=== PATIENT | female | born 1960 | race African-American/Black ===

== ENCOUNTER 2017-03-16 14:28 | Inpatient (IN) | payer OTHER ==
[~2017-03-16] VITALS: Ht 165.1 cm; Wt 88.5 kg
--- NOTE | ~2017-03-16 | EKG ---
[place] [address] [facility] [facility] [place] [address] ELECTROCARDIOGRAM REPORT Name: JERROD JENNINGS Room #: [facility]ITAL[facility] [id number] Admission: 03/16/17 Attend Phys: Discharge: Date of : 62 Report #: [id number] THIS REPORT FOR: //name// [facility] ED Test Date: 2017-03-16 Test Time: 15:03:08 Pat Name: JERROD JENNINGS Department: Room: Gender: F [employer]essel Crew Member: [facility] : 1960 Requested By: Noemy Blue Order Number: [id number] MD: Dakota Rojas Measurements Intervals [place] Rate: 125 P: 36 PA: 137 QRS: -26 QRSD: 78 T: 116 QT: 282 QTc: 407 Interpretive Statements Sinus tachycardia LVH with secondary repolarization abnormality Compared to ECG 05/05/2016 22:48:03 Early repolarization now present Sinus rhythm no longer present Possible ischemia no longer present Electronically Signed On 03-16-2017 16:07:05 [employer]OTHING MANAGER by Dakota Rojas [email or web address] <ELECTRONICALLY SIGNED> By: Dakota Rojas MD 03/16/17 1607 1503 1503 Dakota Rojas MD /LITO
[~2017-03-16 14:28] MED LIST: ASPIR 8181 MG PO; CARVEDILOL12.5 MG PO; FUROSEMIDE 20 M20 MG PO; GLUCOPHAGE XR750 MG PO; JANUVIA100 MG PO; LEVSIN0.125 MG PO; POTASSIUM20 PO; PRILOSEC 20 MG20 MG PO; PRINIVIL20 MG PO; ZOCOR20 MG PO
[2017-03-16 14:30] VITALS: BP 124/89
[2017-03-16 15:30] LABS: URINE BILIRUBIN NEGATIVE (Negative); URINE BLOOD TRACE (Negative); URINE CLARITY CLEAR; URINE COLOR YELLOW; URINE GLUCOSE-RANDOM* NEGATIVE (Negative); URINE KETONES NEGATIVE (Negative); URINE LEUKOCYTES NEGATIVE (Negative); URINE NITRITE NEGATIVE (Negative); URINE PROTEIN (DIPSTICK) 1+ (Negative); URINE UROBILINOGEN 0.2 E.U./dl (0.2-1.0)
[2017-03-16 15:38] LABS: SQUAMOUS 0-3 Few /LPF (0-3); URINE RBC 0-2 Rare /HPF (0-2); URINE WBC 6-15 Few /HPF (0-5)
[2017-03-16 15:39] LABS: CASTS None Seen /LPF (None Seen); CRYSTALS None Seen /LPF (None Seen)
[2017-03-16 15:57] LABS: MAGNESIUM 1.8 mg/dL (1.8-2.4); TROPONIN-I < 0.04 ng/mL (<0.06)
[2017-03-16 16:33] LABS: HEMATOCRIT 35.1 % (37.0-47.0); HEMOGLOBIN 11.4 gm/dL (12.0-15.0); MCH 25.4 pg (26.0-34.0); MCHC 32.5 g/dL (28.0-37.0); MCV 78.3 fL (80.0-100.0); PLATELET COUNT 267 thou/uL (150-400); RBC 4.48 mil/uL (4.20-5.00); RDW 14.5 % (10.5-14.5); WBC 11.9 thou/uL (4.0-11.0)
[2017-03-16 16:37] LABS: CALCIUM 9.3 mg/dL (8.5-10.1); POTASSIUM 4.4 mmol/L (3.5-5.1)
[2017-03-16 16:43] LABS: ALBUMIN 3.6 g/dL (3.4-5.0); TOTAL BILIRUBIN 0.5 mg/dL (<0.1-1.0)
[2017-03-16 16:58] LABS: OVALOCYTES OCCASIONAL
[2017-03-16 18:10] VITALS: BP 124/89
[2017-03-16 19:00] VITALS: BP 122/70
[2017-03-16 19:20] VITALS: BP 109/66
[2017-03-16] MEDS ORDERED: COZAAR 25 MG TA25 M1 PO (19:39)
[2017-03-16 23:45] VITALS: BP 106/67
[2017-03-17 05:15] VITALS: BP 122/74
[2017-03-17 05:42] LABS: ABSOLUTE NEUTROPHILS 7.3 thou/uL (1.4-8.2); BASOPHILS 0.4 % (0.0-2.0); EOSINOPHILS 1.2 % (0.0-3.0); HEMATOCRIT 33.3 % (37.0-47.0); HEMOGLOBIN 10.8 gm/dL (12.0-15.0); MCH 25.8 pg (26.0-34.0); MCHC 32.4 g/dL (28.0-37.0); MCV 79.8 fL (80.0-100.0); MONOCYTES 5.1 % (1.0-8.0); PLATELET COUNT 265 thou/uL (150-400); POLYS 71.3 % (36.0-66.0); RBC 4.17 mil/uL (4.20-5.00); RDW 14.8 % (10.5-14.5); WBC 10.3 thou/uL (4.0-11.0)
[2017-03-17 05:52] LABS: CALCIUM 8.6 mg/dL (8.5-10.1); CREATININE 1.1 mg/dL (0.6-1.0)
[2017-03-17 07:20] VITALS: BP 119/72
[2017-03-17 15:15] VITALS: BP 123/80
[2017-03-17 20:25] VITALS: BP 120/72
[2017-03-18 04:15] VITALS: BP 142/95
[2017-03-18 05:49] LABS: POTASSIUM 4.4 mmol/L (3.5-5.1)
[2017-03-18 07:33] VITALS: BP 145/95
[2017-03-18] MEDS ORDERED: KEFLEX500 M1 PO (12:30)
[2017-03-18 13:50] VITALS: BP 145/95
[2017-09-23] MEDS ORDERED: LASIX 40 MG TAB40 M2 (13:51)
== END 2017-03-18 15:00 | disposition home or self-care (01) | DRG 872 ==
LOC: ER 14:28 → EROBS 16:45 → 4S 16:45 → ENTRNSPT 03-18 14:27 → EDTRNSPTSTS 03-18 14:28 → 4S 03-18 15:00
PROVIDERS: Internal Medicine Endocrinology, Diabetes & Metabolism; Nurse Practitioner Family
DX: A41.9 Sepsis, unspecified organism (principal); N39.0 Urinary tract infection, site not specified; E11.9 Type 2 diabetes mellitus without complications; E78.5 Hyperlipidemia, unspecified; I10 Essential (primary) hypertension; Z85.3 Personal history of malignant neoplasm of breast; Z90.710 Acquired absence of both cervix and uterus; Z90.49 Acquired absence of other specified parts of digestive tract; Z90.13 Acquired absence of bilateral breasts and nipples; Z79.899 Other long term (current) drug therapy; Z88.2 Allergy status to sulfonamides
CPT/HCPCS: 10100

== ENCOUNTER → 2017-09-18 | Outpatient (CLI) | payer OTHER ==
[~2017-09-18] MED LIST changes: +COZAAR 25 MG TA25 M1 PO; +KEFLEX500 M1 PO
== END ==
LOC: ULTRA 09-16 14:08
DX: R11.2 Nausea with vomiting, unspecified (principal); R07.9 Chest pain, unspecified